=== PATIENT | female | born 1980 | race Caucasian/White ===

== ENCOUNTER 2018-11-03 15:30 | Emergency (ER) | payer BC, OTHER ==
[~2018-11-03] VITALS: Ht 167.6 cm; Wt 163.3 kg
[2018-11-03 15:31] VITALS: BP 172/87
[2018-11-03] MEDS ORDERED: PRENATABS RX T1 EAC1 PO (15:39)
[2018-11-03] MEDS ORDERED: ASPIR-LOW81 MG PO (15:40)
[2018-11-03] MEDS ORDERED: AMOXICILLIN 50500 MG PO (15:54)
[2018-11-03] MEDS ORDERED: MAGIC MOUTHWASH SWISH&SPIT (16:07)
== END 2018-11-03 15:59 | disposition home or self-care (01) ==
LOC: ER 15:30
DX: R22.0 Localized swelling, mass and lump, head (principal); R09.81 Nasal congestion; F17.210 Nicotine dependence, cigarettes, uncomplicated; Z88.8 Allergy status to other drugs, medicaments and biological substances